=== PATIENT | male | born 2000 | race Caucasian/White ===

== ENCOUNTER 2020-09-01 16:44 | Emergency (ER) | payer BC, SELFPAY ==
[2020-09-01 17:06] VITALS: BP 124/74; PULSE 62; RESP 18; TEMP 36.8; O2SAT 99; BMI 20.3
--- NOTE | 2020-09-01 17:11 | HMH.EDUTC ---
[facility] Disposition Clinical Impression: Exposure to COVID-19 virus Disposition: Home, Self-Care Condition on Discharge: Good Instructions: Preventing the Spread of Coronavirus Discharge Instructions Additional Instructions: Drink plenty of fluids. Take tylenol for pain or fever. Return if you begin to have difficulty breathing. Follow up with your regular doctor. GO TO THE ER FOR ANY WORSENING SYMPTOMS Referrals: Santos Cintron MD [Primary Care Provider] - Forms: Work/School Release Time of Disposition: 17:16 Medical Decision Making - Medical Records Medical records reviewed: No: I reviewed the patient's medical records. - Ihsan Inquiry Pt receiving controlled substance: No Vital Signs: 09/01/20 17:06 09/01/20 17:16 Temperature 98.2 F 98.2 F Temperature Source Oral Oral Pulse Rate 65 Pulse Rate [Left] 62 Respiratory Rate 18 19 Blood Pressure 119/69 Blood Pressure [Right Arm] 124/74 Blood Pressure Mean [Right Arm] 90 Blood Pressure Source [Right Arm] Automatic Cuff Blood Pressure Position Sitting Blood Pressure Position [Right Arm] Sitting 02 Sat by Pulse Oximetry 99 Oxygen Delivery Method Room Air Room Air [facility] HPI - General Stated complaint: covid test Time Seen by Provider: 09/01/20 17:11 Mode of Arrival: Ambulatory Source of Information: Patient Limitations: No Limitations Description of Symptoms (Recalled from Triage Doc. by RN): exposed to covid positive friend. pt is aysmptomatic. HEENT Symptoms (Recalled from RN notes): No Resp Symptoms (Recalled from RN notes): No Skin Symptoms (Recalled from RN notes): No MS Symptoms (Recalled from RN notes): No Functional Status (Recalled from RN notes): na - History of Present Illness Provider Complaint: He states that he was exposed to covid-19 3 days ago. He denies any symptoms so far. His work ([employer]) wanted him to get tested. - Related Data Home Medications Medication Instructions Recorded Confirmed No Known Home Medications 09/24/17 09/24/17 Allergies Allergy/AdvReac Type Severity Reaction Status Date / Time NO KNOWN ALLERGIES - NKA Allergy Mild Uncoded 09/24/17 10:58 - Worker's Comp Is this a Worker's Comp case?: No [facility] History - Hepatitis A Screen Drug use history?: No High risk sexual behaviors?: No History of sexually transmitted infection?: No Currently employed?: No Childcare worker?: No Do you have indoor plumbing?: Yes Do you have electricity?: Yes Attestation statement:: This patient has been screened for Hepatitis A risk factors. I have reviewed the patient's past medical history: Yes Other Surgeries: Yes: No Previous Surgery - Social History Smoking Status: Never smoker Alcohol Intake: never Family Hx:: No significant family history ROS Obtained: Yes All systems reviewed & no additional complaints - Constitutional Constitutional: Reports system reviewed and no additional complaints, except as docu - Eyes Eyes: Reports system reviewed and no additional complaints, except as docu - ENT Ears, Nose, Mouth, and Throat: Reports system reviewed and no additional complaints, except as docu - Cardiovascular Cardiovascular: Reports system reviewed and no additional complaints, except as docu - Respiratory Respiratory: Reports system reviewed and no additional complaints, except as docu - Gastrointestinal Gastrointestingal: Reports: system reviewed and no additional complaints, except as docu Physical Exam - General General appearance: alert, in no apparent distress - Head Head exam: atraumatic, normocephalic, normal inspection - Eye Eye exam: Present: normal appearance, PERRL, EOMI - ENT ENT exam: Present: normal exam, normal oropharynx, mucous membranes moist, TM's normal bilaterally, normal external ear exam - Neck Neck exam: Present: normal inspection, full ROM, trachea midline. Absent: meningismus, lymphadenopathy - Chest C
[2020-09-01 17:16] VITALS: BP 119/69; PULSE 65; RESP 19; TEMP 36.8
--- NOTE | 2020-09-02 09:24 | PC.NURSE ---
attempted to contact patient re: covid results
--- NOTE | 2020-09-02 09:28 | PC.NURSE ---
PATIENT RETURNED CALL, NOTIFIED OF POSITIVE COVID RESULTS
== END 2020-09-01 17:28 | disposition home or self-care (01) ==
PROVIDERS: Emergency Provider Nurse Practitioner Family; PCP Family Medicine
DX: Z20.822 Contact with and (suspected) exposure to COVID-19 (principal)
CPT/HCPCS: 99202; G0463; U0003

== ENCOUNTER 2020-09-15 18:45 | Emergency (ER) | payer BC, SELFPAY ==
[2020-09-15 18:45] VITALS: BP 138/82; PULSE 68; RESP 18; TEMP 36.9; O2SAT 99; BMI 20.3
[2020-09-15 19:16] VITALS: BP 138/82; PULSE 68; RESP 18; TEMP 36.9; O2SAT 99
--- NOTE | 2020-09-15 19:17 | HMH.EDUTC ---
[facility] [place] Disposition Clinical Impression: COVID-19 Disposition: Home, Self-Care Condition on Discharge: Good Instructions: Preventing the Spread of Coronavirus Discharge Instructions Additional Instructions: Drink plenty of fluids. Take tylenol or ibuprofen for pain or fever. Take the medications as directed. Follow up with your regular doctor. GO TO THE ER FOR ANY WORSENING SYMPTOMS Referrals: Santos Cintron MD [Primary Care Provider] - Time of Disposition: 19:24 Medical Decision Making - Medical Records Medical records reviewed: No: I reviewed the patient's medical records. - Ihsan Inquiry Pt receiving controlled substance: No Vital Signs: 09/15/20 18:45 09/15/20 19:16 Temperature 98.4 F 98.4 F Temperature Source Oral Pulse Rate 68 Pulse Rate [Right Brachial] 68 Respiratory Rate 18 18 Blood Pressure 138/82 Blood Pressure [Right Arm] 138/82 Blood Pressure Mean [Right Arm] 100 Blood Pressure Source [Right Arm] Automatic Cuff Blood Pressure Position [Right Arm] Sitting 02 Sat by Pulse Oximetry 99 Oxygen Delivery Method Room Air [facility] [place] HPI - General Stated complaint: covid test Time Seen by Provider: 09/15/20 19:17 Mode of Arrival: Ambulatory Source of Information: Patient Limitations: No Limitations Description of Symptoms (Recalled from Triage Doc. by RN): PATIENT NEEDING A NEGATIVE TEST TO RETURN TO WORK HEENT Symptoms (Recalled from RN notes): No Resp Symptoms (Recalled from RN notes): No Skin Symptoms (Recalled from RN notes): No MS Symptoms (Recalled from RN notes): No Functional Status (Recalled from RN notes): WNL - History of Present Illness Provider Complaint: He has had covid-19 and now he needs a negative test to return to work. He denies any symptoms for the past several days. - Related Data Home Medications Medication Instructions Recorded Confirmed No Known Home Medications 09/24/17 09/24/17 Allergies Allergy/AdvReac Type Severity Reaction Status Date / Time No Known Allergies Allergy Verified 09/15/20 19:07 - Worker's Comp Is this a Worker's Comp case?: No [facility] History - Hepatitis A Screen Drug use history?: No High risk sexual behaviors?: No History of sexually transmitted infection?: No Currently employed?: No Childcare worker?: No Do you have indoor plumbing?: Yes Do you have electricity?: Yes Attestation statement:: This patient has been screened for Hepatitis A risk factors. I have reviewed the patient's past medical history: Yes Other Surgeries: Yes: No Previous Surgery - Social History Smoking Status: Never smoker Alcohol Intake: never Occupational Status: employed Family Hx:: No significant family history ROS Obtained: Yes All systems reviewed & no additional complaints - Constitutional Constitutional: Reports system reviewed and no additional complaints, except as docu - Eyes Eyes: Reports system reviewed and no additional complaints, except as docu - ENT Ears, Nose, Mouth, and Throat: Reports system reviewed and no additional complaints, except as docu - Cardiovascular Cardiovascular: Reports system reviewed and no additional complaints, except as docu - Respiratory Respiratory: Reports system reviewed and no additional complaints, except as docu - Gastrointestinal Gastrointestingal: Reports: system reviewed and no additional complaints, except as docu Physical Exam - General General appearance: alert, in no apparent distress - Head Head exam: atraumatic, normocephalic, normal inspection - Eye Eye exam: Present: normal appearance, PERRL, EOMI - ENT ENT exam: Present: normal exam, normal oropharynx, mucous membranes moist, TM's normal bilaterally, normal external ear exam - Neck Neck exam: Present: normal inspection, full ROM, trachea midline. Absent: meningismus, lymphadenopathy - Chest Chest inspection: Present: normal inspection, symmetric chest wall rise. Absent: tendernes
== END 2020-09-15 19:26 | disposition home or self-care (01) ==
PROVIDERS: Emergency Provider Nurse Practitioner Family; PCP Family Medicine
DX: Z86.16 Personal history of COVID-19 (principal)
CPT/HCPCS: 99202; G0463; U0003

== ENCOUNTER → 2021-05-31 16:47 | Outpatient (CLI) | payer BC, SELFPAY | PROVIDERS: PCP Family Medicine; Visit Provider Nurse Practitioner | DX: Z20.822 Contact with and (suspected) exposure to COVID-19 (principal) | CPT/HCPCS: C9803; U0003; U0005 ==

== ENCOUNTER → 2021-10-28 12:25 | Outpatient (CLI) | payer BC, SELFPAY ==
[2021-10-28 13:01] LABS: Strep Scrn Group A (Rapid) Negative (Negative)
== END ==
PROVIDERS: PCP Family Medicine; Visit Provider Family Medicine
DX: Z20.822 Contact with and (suspected) exposure to COVID-19 (principal)
CPT/HCPCS: 87275; 87276; 87430; C9803; U0003; U0005

== ENCOUNTER → 2021-10-31 18:17 | Outpatient (CLI) | payer BC, SELFPAY ==
[2021-10-31 18:44] LABS: Monoscreen (Rapid) Negative (Negative)
== END ==
PROVIDERS: PCP Family Medicine; Visit Provider Family Medicine
DX: Z11.59 Encounter for screening for other viral diseases (principal)
CPT/HCPCS: 36415; 86318

== ENCOUNTER 2022-05-07 13:43 | Emergency (ER) | payer BC, SELFPAY ==
[2022-05-07 14:06] VITALS: BP 135/66; PULSE 83; RESP 17; TEMP 36.6; O2SAT 99; BMI 20.9
[2022-05-07 14:09] LABS: UTC Strep Screen (Rapid) Negative (Negative)
--- NOTE | 2022-05-07 14:20 | EXP.UTC ---
Discharge Plan Disposition Patient Disposition: Home, Self-Care Condition: Good Prescriptions Prescriptions: New amoxicillin [amoxicillin] 875 mg tablet 875 mg PO Q12H Qty: 20 0RF [id number]-wkwhrldju-[id number] [Bromfed DM] 2-30-10 mg/5 mL Syrup 5 ml PO Q6H PRN (Reason: Cough) Qty: 240 0RF prednisone 10 mg tablet 10 mg PO BID 3 Days Qty: 6 0RF Referrals Follow up/Referrals: Santos Cintron MD [Primary Care Provider] - See instructions Activity Restrictions/Add. Instructions Additional Instructions/Restrictions: Drink plenty of fluids. Take tylenol or ibuprofen for pain or fever. Take the medications as directed. Follow up with your regular doctor. GO TO THE ER FOR ANY WORSENING SYMPTOMS Throw your tooth brush away and get a new one. Clinical Impressions Clinical Impression: Pharyngitis Stand Alone Forms Stand Alone Forms: Work/School Release Instructions Patient Instructions: Strep Throat, DI for Strep Throat Discharge ED Provider: Gael Melton [facility] General Stated complaint: sore throat, weakness, chills Mode of Arrival: Ambulatory Source of Information: Patient Limitations: No Limitations Time Seen by Provider: 05/07/22 14:19 Description of Symptoms (Recalled from Triage Doc. by RN): pt comes in with c/o sore throat, chills, fatigue. symptoms began last night, but have worsened today. HEENT Symptoms (Recalled from RN notes): No Resp Symptoms (Recalled from RN notes): No Skin Symptoms (Recalled from RN notes): No MS Symptoms (Recalled from RN notes): No Functional Status (Recalled from RN notes): n/a History of Present Illness Provider Complaint: He states that for the past 2 days he has had a worsening sore throat. He has been exposed to strep throat. Related Data Previous Rx's Medication Instructions Recorded amoxicillin 875 mg tablet 875 mg PO Q12H #20 tabs 05/07/22 zzkpqujymarigpz-luvxetevtkxsuwy-YX 5 ml PO Q6H PRN Cough #240 mL 05/07/22 2 mg-30 mg-10 mg/5 mL oral syrup (Bromfed DM) prednisone 10 mg tablet 10 mg PO BID 3 days #6 tabs 05/07/22 Allergies Allergy/AdvReac Type Severity Reaction Status Date / Time No Known Allergies Allergy Verified 09/15/20 19:07 Worker's Comp Is this a Worker's Comp case?: No PFSH PFSH Social History Smoking Status: Never smoker alcohol intake: never current occupational status: employed Travel in the last 8 weeks: None ROS Obtained: Yes All systems reviewed & no additional complaints except as documented Constitutional Constitutional: Reports chills and Reports fever(s) Eyes Eyes: Denies eye discharge ENT Ears, Nose, Mouth, and Throat: Reports as per HPI Cardiovascular Cardiovascular: Denies chest pain Respiratory Respiratory: Denies chest congestion and Reports cough Gastrointestinal Gastrointestingal: Reports nausea; Denies abdominal pain, constipation, cramping, diarrhea or vomiting Musculoskeletal Musculoskeletal: Denies arthralgias Integumentary/Breasts Skin/Breast: Denies rash Neurologic Neurologic: Denies paresthesias Physical Exam General General appearance: alert and in no apparent distress Head Head exam: atraumatic, normocephalic and normal inspection Eye Eye exam: Present normal appearance, PERRL and EOMI ENT ENT exam: Present mucous membranes moist and normal external ear exam Expanded ENT Exam TM/Canal exam: Bilateral TM: erythema and bulging Nose exam: Absent sinus tenderness Mouth exam: Present normal external inspection; Absent drooling Teeth exam: Present normal inspection Throat exam: Present tonsillar erythema, tonsillomegaly and tonsillar exudate Neck Neck exam: Present normal inspection, full ROM and trachea midline; Absent tenderness, meningismus or lymphadenopathy Chest Chest inspection: Present normal inspection and symmetric chest wall rise; Absent tenderness Respiratory Respiratory exam: Present normal
[2022-05-07 14:43] VITALS: BP 135/66; PULSE 83; RESP 17; TEMP 36.6
== END 2022-05-07 14:51 | disposition home or self-care (01) ==
PROVIDERS: Emergency Provider Nurse Practitioner Family; PCP Family Medicine
DX: U07.1 COVID-19 (principal)
CPT/HCPCS: 87880; 99212; C9803; G0463; U0003; U0005

== ENCOUNTER 2022-05-22 08:14 | Emergency (ER) | payer BC, SELFPAY ==
[2022-05-22 08:14] VITALS: BP 115/80; PULSE 89; RESP 19; TEMP 36.5; O2SAT 98; BMI 24.8
--- NOTE | 2022-05-22 08:43 | EXP.UTC ---
Discharge Plan Disposition Patient Disposition: Home, Self-Care Condition: Good Prescriptions Prescriptions: New polymyxin B sulf-trimethoprim [Polytrim] 10,000 unit- 1 mg/mL drops 2 drp ophthalmic (eye) Q6H 7 Days Qty: 10 0RF Rx Instructions: apply in left eye while awake; do not exceed 6 doses in 24 hours No Action amoxicillin [amoxicillin] 875 mg tablet 875 mg PO Q12H Qty: 20 0RF fdhdwjrcgbahwch-kmwsrkpep-OA [Bromfed DM] 2-30-10 mg/5 mL Syrup 5 ml PO Q6H PRN (Reason: Cough) Qty: 240 0RF prednisone 10 mg tablet 10 mg PO BID 3 Days Qty: 6 0RF Referrals Follow up/Referrals: Santos Cintron MD [Primary Care Provider] - See instructions Activity Restrictions/Add. Instructions Additional Instructions/Restrictions: Wash hands well before and after applying eye drops Warm water and baby shampoo may help to clear matting from eyes Return if needed Follow up with your Eye Doctor if no improvement or any worsening of symptoms Straight to ER if any life threatening symptoms Clinical Impressions Clinical Impression: Conjunctivitis Qualifiers: Conjunctivitis type: unspecified Laterality: left Qualified Code(s): H10.9 - Unspecified conjunctivitis Stand Alone Forms Stand Alone Forms: Work/School Release Instructions Patient Instructions: Conjunctivitis, DI for Conjunctivitis Discharge ED Provider: Sun Saha [facility] General Stated complaint: possible pink eye Mode of Arrival: Ambulatory Source of Information: Patient and Parent(s) Limitations: No Limitations Time Seen by Provider: 05/22/22 08:43 Description of Symptoms (Recalled from Triage Doc. by RN): pink eye right since this morning HEENT Symptoms (Recalled from RN notes): Yes Resp Symptoms (Recalled from RN notes): No Skin Symptoms (Recalled from RN notes): No MS Symptoms (Recalled from RN notes): No Functional Status (Recalled from RN notes): n/a History of Present Illness Provider Complaint: Patient states that he woke up this morning with his left eye matted together States that since then he has had drainage and the eye felt irritated and itchy Denies injury Denies FB Related Data Previous Rx's Medication Instructions Recorded amoxicillin 875 mg tablet 875 mg PO Q12H #20 tabs 05/07/22 yykrchvjtwvxifq-vvhfnxrefuqdgnh-SW 5 ml PO Q6H PRN Cough #240 mL 05/07/22 2 mg-30 mg-10 mg/5 mL oral syrup (Bromfed DM) prednisone 10 mg tablet 10 mg PO BID 3 days #6 tabs 05/07/22 polymyxin B sulfate 10,000 2 drp ophthalmic (eye) Q6H 7 days 05/22/22 unit-trimethoprim 1 mg/mL eye #10 mL drops (Polytrim) Allergies Allergy/AdvReac Type Severity Reaction Status Date / Time No Known Allergies Allergy Verified 09/15/20 19:07 Worker's Comp Is this a Worker's Comp case?: No PFSH PFSH Social History Smoking Status: Never smoker alcohol intake: never current occupational status: employed Travel in the last 8 weeks: None ROS Obtained: Yes All systems reviewed & no additional complaints except as documented and Yes Systems reviewed as appropriate & no additional complaints except as documented Constitutional Constitutional: Reports system reviewed and no additional complaints, except as documented and Reports as per HPI Eyes Eyes: Reports system reviewed and no additional complaints, except as documented, Reports as per HPI, Reports eye discharge, Reports irritation, Reports itchy eyes and Reports other (redness and matting) ENT Ears, Nose, Mouth, and Throat: Reports system reviewed and no additional complaints, except as documented and Reports as per HPI Cardiovascular Cardiovascular: Reports system reviewed and no additional complaints, except as documented and Reports as per HPI Allergic/Immunologic Allergic/Immunologic: Reports itchy eyes Physical Exam General General appearance: alert and in no apparent distress Eye Eye exam: Present conjunctival redness,
[2022-05-22 08:54] VITALS: BP 115/80; PULSE 89; RESP 18; TEMP 36.5; O2SAT 98
== END 2022-05-22 08:55 | disposition home or self-care (01) ==
PROVIDERS: Emergency Provider Nurse Practitioner; PCP Family Medicine
DX: H10.9 Unspecified conjunctivitis (principal); R05.9 Cough, unspecified
CPT/HCPCS: 99213; G0463

== ENCOUNTER → 2022-11-13 15:52 | Outpatient (CLI) | payer BC, SELFPAY ==
--- NOTE | 2022-11-13 15:55 | MR_ITS ---
PROCEDURE INFORMATION: Exam: MR Right Lower Extremity Joint Without Contrast, Knee Exam date and time: 11/13/2022 4:06 PM Age: 22 years old Clinical indication: Pain; Knee; Right; Additional info: Pain in right knee. Pain inferior to patella. No injury or trauma. Knee instability. TECHNIQUE: Imaging protocol: Magnetic resonance imaging of the right lower extremity joint without contrast. Exam focused on the knee. COMPARISON: No relevant prior studies available. FINDINGS: Bones/joints: Marrow edema/contusion is identified involving the patella, most significant inferiorly. Minimal patellofemoral joint effusion. Bursae: Minimal fluid within the deep infrapatellar bursa. A neck of a Caceres cyst is visualized. Medial meniscus: Minimal increased signal within the medial meniscus. There is a subtle tear of the posterior horn of the medial meniscus extending to the inferior articulating surface, as visualized on series 9, image 47. Lateral meniscus: A small amount of fluid is identified adjacent to the posterior horn of the lateral meniscus. This measures 1-2 mm inferior to the posterior horn. No visualized tear of the lateral meniscus contacting an articulating surface. Mild abnormal morphology of the posterior horn of the lateral meniscus. Anterior cruciate ligament: Heterogeneous signal intensity of the ACL, consistent with mucoid degeneration. No full-thickness tear visualized. Posterior cruciate ligament: No visualized tear. Medial capsule and supporting structures: Unremarkable. No tear. Lateral capsule and supporting structures: Unremarkable. No tear. Extensor mechanism of knee: Mild tendinosis of the distal quadriceps tendon and patellar tendon. Soft tissues: Minimal edema/fluid within Hoffa's fat. Mild soft tissue swelling posteriorly. IMPRESSION: 1. Marrow edema/contusion is identified involving the patella, most significant inferiorly. 2. There is a subtle tear of the posterior horn of the medial meniscus. 3. Minimal patellofemoral joint effusion. 4. Heterogeneous signal intensity of the ACL, consistent with mucoid degeneration. No full-thickness tear visualized. 5. Additional findings described above.
== END ==
PROVIDERS: PCP Family Medicine; Visit Provider Family Medicine
DX: M25.561 Pain in right knee (principal)
CPT/HCPCS: 73721

== ENCOUNTER 2024-07-20 15:34 | Emergency (ER) | payer BC, SELFPAY ==
[2024-07-20 17:30] VITALS: BP 145/85; PULSE 78; RESP 19; TEMP 37.1; O2SAT 98; BMI 25.1
--- NOTE | 2024-07-20 17:41 | EXP.UTC ---
Discharge Plan Disposition Patient Disposition: Home, Self-Care Condition: Good Referrals Follow up/Referrals: Srinivasa Irwin MD [Primary Care Provider] - See instructions Activity Restrictions/Add. Instructions Additional Instructions/Restrictions: *Monitor Temp, Over the counter Motrin or Tylenol as directed/as needed Tylenol every 4 hours and Motrin every 6 hours (as long as your family doctor has told you that you can take it) for fever or pain. and straight to ER if unable to lower temp less than 101.0 after medication given *Warm salt water gargles may help to soothe the throat *Throat Lozenges? *Warm fluids like tea with honey may help to soothe the throat? *Sleep elevated *Humidifier/Vaporizer *Flonase 2 sprays in each nostril daily but be aware that it may take 2-3 days before you notice improvement *Bromfed may cause drowsiness. Know how it effects you (your child) before driving, caring for small child, or sending your child to school. Not other antihistamines/allergy medications while taking bromfed Your throat swab was sent for culture. Those results are typically sent to your primary care. Be sure to follow up in 2-3 days with your family doctor/primary care physician if no improvement so they can review those result and treat if necessary. If you don?t have a primary care doctor, I recommend you get one but in the mean time, you will have to return to a walk in clinic Follow up IMMEDIATELY for new or worsening symptoms or no Noticeable improvement over the next 48-72 hours. 911 for difficulty breathing or swallowing Clinical Impressions Clinical Impression: Viral syndrome Instructions Patient Instructions: Sore Throat, DI for Nasal Congestion Print Language Print Language: Bermudian Discharge ED Provider: Sun Saha [facility] HPI General Stated complaint: h/a, sore throat, congestion Time Seen by Provider: 07/20/24 17:41 History of Present Illness Provider Complaint: Patient states that he has had sore throat since Sunday States that today his throat was hurting worse States that he has been around brother that has had COVID and flu 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 Social History Smoking Status: Never smoker alcohol intake: never current occupational status: employed Travel in the last 8 weeks: None Have you lived/traveled outside [place] in past 30 days?: No Contact w/someone who lives/traveled outside US past 30 days?: No Exposure to someone with infectious disease in past 14 days?: No Do you have a fever (greater than 100.4 F or 38 C)?: No Have you tested positive for COVID-19: No Exposed to someone with COVID-19 in past 14 days?: Yes Do you have a sore throat?: Yes Do you have a cough?: No Do you have any weakness?: No Do you have any diarrhea?: No Are you experiencing any unusual bleeding?: No Do you have any muscle aches/pain?: No Do you have any abdominal pain?: No Are you experiencing loss of taste or smell?: No ROS Obtained: Yes All systems reviewed & no additional complaints except as documented and Yes Systems reviewed as appropriate & no additional complaints except as documented Constitutional Constitutional: Reports system reviewed and no additional complaints, except as documented, Reports as per HPI, Reports body ache, Reports chills and Reports headache(s) ENT Ears, Nose, Mouth, and Throat: Reports system reviewed and no additional complaints, except as documented, Reports as per HPI, Reports headache(s), Reports nasal congestion, Reports nasal discharge and Reports sore throat Cardiovascular Cardiovascular: Reports system reviewed and no additional complaints, except as documented and Reports as per HPI Respiratory Respiratory: Reports system reviewed and no additional complaints, except as documented and Reports as per HPI Neurologic Neurologic: Reports headache(s) Physical Exam General General appearance: alert and in no apparent distress ENT ENT exam: Present mucous membranes moist Expanded ENT Exam Nose exam: Absent sinus tenderness Throat exam: Present tonsillar erythema Respiratory Respiratory exam: Present normal lung sounds bilaterally; Absent respiratory distress or wheezes Cardiovascular Cardiovascular exam: Present regular rate, normal rhythm and normal heart sounds Abdominal Exam Abdominal exam: Present soft and normal bowel sounds; Absent distention or tenderness Neurological Exam Neurological exam: Present alert, oriented X3 and normal gait Medical Decision Making Medical Records Screening: Per USPSTF and CDC recommendations, given the prevalence of disease in our region, it is our hospital?s policy to screen for HIV and viral Hepatitis for all patients aged 18 and over and those with ongoing risk factors. Ihsan Inquiry Pt receiving controlled substance: No Ihsan was queried for this patient: No Lab Data Lab results reviewed: Yes I reviewed the patient's lab results.
[2024-07-20 17:57] LABS: UTC Influenza A Antigen Negative (Negative); UTC Strep Screen (Rapid) Negative (Negative)
[2024-07-20 17:58] LABS: UTC Influenza B Antigen Negative (Negative)
[2024-07-20 18:00] VITALS: BP 145/85; PULSE 78; RESP 19; TEMP 37.1; O2SAT 98
[2024-07-20 18:14] LABS: Coronavirus 19, PCR Not Detected (NotDetected); Influenza A, PCR Not Detected (NotDetected); Influenza B, PCR Not Detected (NotDetected)
== END 2024-07-20 18:04 | disposition home or self-care (01) ==
PROVIDERS: Emergency Provider Nurse Practitioner; PCP Family Medicine
DX: B34.9 Viral infection, unspecified (principal)
CPT/HCPCS: 87636; 87804; 87880; 99213; G0381

== ENCOUNTER 2024-12-04 15:52 | Outpatient (CLI) | payer BC, SELFPAY ==
--- OUTSIDE RECORDS SUMMARY | 2024-12-04 15:54 | XMS_ITS | Continuity of Care Document ---
Author Name [facility] Organization [facility] Care Team Providers Care Tumor Registrar Name Role Phone [facility] Unavailable Unavailable Problems Combined list of problems from Department of Defense and Veterans Affairs facilities. It does not include entries that were removed or entered in error. 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 Medication Details Route Status Patient Instructions Prescription Expires Prescription Number Last Dispense Date Ordering Provider Order Date Order Qty Source atropine-pr alidoxime 2.1 mg-600 mg/2.7 mL syringe See Instruct ions, # 8.1 mL, 0 total refill(s ), Hard Stop Complet ed 05/01/2024 3 2023 8.1 Ambulat ory Pharmac y Cipro 500 mg tablet See Instruct ions, Oral, # 6 EA, 0 total refill(s ), Hard Stop Oral (given by mouth) Complet ed 05/01/2024 3 2023 6.0 Ambulat ory Pharmac y diazePAM 10 mg/2 mL autoinjecto r (2mL) See Instruct ions, # 2 mL, 0 total refill(s ), Hard Stop Complet ed 10/29/2023 3 2023 2.0 Ambulat ory Pharmac y iOSAT 130 mg tablet See Instruct ions, Oral, # 14 EA, 0 total refill(s ), Hard Stop Oral (given by mouth) Complet ed 05/01/2024 3 2023 14.0 Ambulat ory Pharmac y pyridostigm ine bromide 30 mg tablet See Instruct ions, Oral, # 42 EA, 0 total refill(s ), Hard Stop Oral (given by mouth) Complet ed 05/01/2024 3 2023 42.0 Ambulat ory Pharmac y Reactive Skin Decontamina tion Lotion Packet See Instruct ions, # 3 EA, 0 total refill(s ), Hard Stop Complet ed 05/01/2024 3 2023 3.0 Ambulat ory Pharmac y Allergies, Adverse Reactions, Alerts Combined list of allergies from Department of Defense and Veterans Affairs facilities. It does not include entries that were removed or entered in error. Substance Category Reaction Severity Reaction type Status Date Reported Comments Source No Known Allergies Drug allergy (disorder) active 09/22/2022 [place] [address] Immunizations Combined list of available immunizations from the Department of Defense and Veterans Affairs facilities. Immunization Series Date Given Administered By Site Reaction Lot Number CVX Code Drug Rn Teacher Status Comments Source hepatitis B vaccine, adult dosage 3 2020 [id number] [employer] ([facility]) complet ed hepatitis B vaccine, adult dosage DoD influenza, injectable, quadrivalent, contains preservative 1 2020 [id number] [employer] ([facility]) complet ed influenza , injectabl e, quadrival ent, contains preservat tyson DoD SARS-COV-2 (COVID-19) vaccine, mRNA, spike protein, LNP, preservative free, 30 mcg/0.3mL dose 2 2020 [id number] [employer] (PFR) complet ed SARS-COV- 2 (COVID-19 ) vaccine, mRNA, spike protein, LNP, preservat tyson free, 30 mcg/0.3mL dose DoD COVID Vaccine Pfizer 2020 [id number] PFIZER complet ed COVID Vaccine Pfizer 05/05/21 Given Ambulat ory Pharmac y SARS-COV-2 (COVID-19) vaccine, mRNA, spike protein, LNP, preservative free, 30 mcg/0.3mL dose 1 2020 [id number] [employer] (PFR) complet ed SARS-COV- 2 (COVID-19 ) vaccine, mRNA, spike protein, LNP, preservat tyson free, 30 mcg/0.3mL dose DoD hepatitis B vaccine, adult dosage 1 2020 [id number] 43 [employer] (SKB) complet ed hepatitis B vaccine, adult dosage DoD hepatitis B adult vaccine 2020 [id number] 43 GlaxoSmithKli ne complet ed hepatitis B adult vaccine 10/27/20 Given Ambulat ory Pharmac y hepatitis B vaccine, adult dosage 1 2020 [id number] 43 [employer] (SKB) complet ed hepatitis B vaccine, adult dosage DoD tetanus, diphtheria, acellular pertu is 2020 [id number] GlaxoSmithKli ne complet ed tetanus, diphtheri a, acellular pertussis 10/21/20 Given Ambulat ory Pharmac y influenza, injectable, quadrivalent- pf 2020 [id number] 150 Seqirus complet ed influenza , injectabl e, quadrival ent-pf 10/21/20 Given Ambulat ory Pharmac y adenovirus vaccine, live 2020 [id number] 143 Teva Pharmaceutica complet ed adenoviru s vaccine, live 10/21/20 Given Ambulat ory Pharmac y meningococcal A,C,Y,W-135 (MCV4P) 2020 [id number] sanofi pasteur complet ed meningoco ccal A,C,Y,W-1 35 (MCV4P) 10/21/20 Given Ambulat ory Pharmac y poliovirus vaccine, inactivated 2020 [id number] 10 sanofi pasteur complet ed polioviru s vaccine, inactivat ed 10/21/20 Given Ambulat ory Pharmac y poliovirus vaccine, inactivated 1 2020 [id number] 10 Sanofi Pasteur (PMC) complet ed polioviru s vaccine, inactivat ed DoD meningococcal polysaccharid e (groups A, C, Y and W-135) diphtheria toxoid conjugate vaccine (MCV4P) 1 2020 [id number] Sanofi Pasteur (PMC) complet ed meningoco ccal polysacch aride (groups A, C, Y and W-135) diphtheri a toxoid conjugate vaccine (MCV4P) DoD tetanus toxoid, reduced diphtheria toxoid, and acellular pertu is vaccine, adsorbed 1 2020 [id number] 115 SmithKline (SKB) complet ed tetanus toxoid, reduced diphtheri a toxoid, and acellular pertussis vaccine, adsorbed DoD Adenovirus, type 4 and type 7, live, oral 1 2020 [id number] 143 [employer] (BRR) complet ed Adenoviru s, type 4 and type 7, live, oral DoD Influenza, injectable, quadrivalent, preservative free 1 2020 [id number] 150 Seqirus (SEQ) complet ed Influenza , injectabl e, quadrival ent, preservat tyson free DoD measles virus vaccine 0 2020 05 () Not Given measles virus vaccine DoD rubella virus vaccine 0 2020 06 () Not Given rubella virus vaccine DoD mumps virus vaccine 0 2020 07 () Not Given mumps virus vaccine DoD varicella virus vaccine 0 2020 21 () Not Given varicella virus vaccine DoD hepatitis A vaccine, adult dosage 0 2020 52 () Not Given hepatitis A vaccine, adult dosage DoD Results Combined list of recent chemistry, hematology and other laboratory results from Department of Defense and Veterans Affairs, ranging from 15 months to all on record, depending upon the facility. Order Name Results Value Reference Range Date Interpretation Specimen Comments Source Infectiou s Disease HIV-1/O/2 Non-Reac tive 1 (11/07/23 12:56 PM) 11/06 N Interpretiv e Data: INTERPRETAT ION: This method is a screening procedure for the detection of HIV p24 Antigen and Antibodies to HIV-1, including Group O, and/or HIV-2. NON-REACTIV E: HIV-1 antigen and HIV-1 / HIV-2 antibodies were not detected. No laboratory evidence of HIV infection. A negative test result does not exclude the possibility of exposure to or infection with HIV. HIV antibodies and/or p24 antigen may be undetectabl e in some stages of the infection and in some clinical conditions. If acute HIV infection is suspected, consider submitting another specimen to a reference laboratory for HIV-1 RNA. SCREEN REACTIVE - CONFIRMATIO N TO FOLLOW: Possible presence of HIV-1antibo dies, HIV-2 antibodies and/or HIV-1 p24 antigen. Specimen will reflex to the confirmatio n testing that fulfills the Center for Disease Control and Prevention' s HIV diagnostic algorithm. Refer to [facility] Guide for additional information : [email or web address] [email or web address] [email or web address] x Testing performed by [employer] [facility] EPILAB Miscellan eous Sendouts Repository Sample Received (11/07/23 12:56 PM) 11/06 N [id number] Infectiou s Disease HIV-1/O/2 Non-Reac tive 2 (02/15/23 9:48 AM) 02/15 N Interpretiv e Data: INTERPRETAT ION: This method is a screening procedure for the detection of HIV p24 Antigen and Antibodies to HIV-1, including Group O, and/or HIV-2. NON-REACTIV E: HIV-1 antigen and HIV-1 / HIV-2 antibodies were not detected. No laboratory evidence of HIV infection. A negative test result does not exclude the possibility of exposure to or infection with HIV. HIV antibodies and/or p24 antigen may be undetectabl e in some stages of the infection and in some clinical conditions. If acute HIV infection is suspected, consider submitting another specimen to a reference laboratory for HIV-1 RNA. SCREEN REACTIVE - CONFIRMATIO N TO FOLLOW: Possible presence of HIV-1antibo dies, HIV-2 antibodies and/or HIV-1 p24 antigen. Specimen will reflex to the confirmatio n testing that fulfills the Center for Disease Control and Prevention' s HIV diagnostic algorithm. Refer to [facility] Lab Guide for additional information : [email or web address]/kx5/EPIL ab/Pages/la [email or web address] x Testing performed by [employer] [id number] Miscellan eous Sendouts Repository Sample Received (02/15/23 9:48 AM) 02/15 N [id number] Encounters Combined list of: 1) Encounters from Department of Veterans Affairs facilities going backup to the last 18 months, not all VA inpatient encounters are included; 2) Encounters from the Department of Defense facilities going backup to 280 months. Location Location Details Encounter Type Encounter Number Reason For Visit Attending Provider ADM Date DC Date Status Disposition [place] [address](Opt [facility]) OUTPATIENT [id number] GÓMEZ MARSHALL 10/27 Released w/o Limitations [facility] [place] [address](O ptometr y Clinic [facility]) [place] [address]([facility]) OUTPATIENT [id number] Notes Entered by: COLIN MCFADDEN 03 Dec 2020 1501 ------- ------- ------- ------- -- PAUL Paula 12/03 Sick at Home/Quarter s [facility] [place] [address]([facility] d) [place] [address](AFN G [address]) OUTPATIENT [id number] Notes Entered by: DANIEL PRICE 03 Sep 2021 1013 ------- ------- ------- ------- -- Annual Non-Fly ARAM ESTRADA 09/03 Released w/o Limitations [facility] [place] [address](A FNG [address]) [place] [address](AFN G [address]) OUTPATIENT [id number] Notes Entered by: DANIEL PRICE 22 Sep 2022 1315 ------- ------- ------- ------- -- Non-Fly ARAM ESTRADA 09/22 [facility] Limitations [facility] [place] [address]A FNG [address]) Theater Facility OUTPATIENT [id number] Theater Provider 10/10 Released w/o Limitations Theater Fac[facility] [id number] MDG Dental [id number] RYAN GARCIA 05/09 Discharge Disposition: Home or Self Care [id number] MDG Procedures Combined list of: 1) Procedures from Department of Veterans Affairs facilities going back up to [facility] 18 months, not all VA non-surgical procedures are included; 2) All procedures from the Department of Defense facilities. Procedure Procedure Type Code Date Perfomer Comments Sourc e No data available for this section Ambulato ry Pharmacy Screening Test Of Visual Acuity, Quantitative, Bilateral Screening Test Of Visual Acuity, Quantitative, Bilateral [id number] GÓMEZ MARSHALL [facility] Social History Combined list of available smoking, tobacco, and other social history from Department of Defense and Veterans Affairs facilities. Social History Type Response Date Comment Sourc e Sex Representation Male (finding) 05/27/2021 Un known Organization Tobacco Frequent/Daily exposure to secondhand smoke in indoor/confined spaces No. Cigarette use: Never-cigarette user. Other Tobacco use: Never-other tobacco user (not cigarettes). Ambulatory Pharmacy Sexual Orientation Ambula tory Pharmacy Gender identity Ambulator y Pharmacy This section is an empty social history section. [facility] Assessment and Plan Combined list of future care activities from Department of Defense and Veterans Affairs facilities (e.g., assessment and plan notes, appointments, orders, and referrals). Additional future care activities may be listed in the Plan of Care section. 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 2.?History of deployment Indicated by SM on their PHAQ Added to 's Kelly problem list ? ? 3.?Exposure to environmental pollution, occupational Indicated by SM on their PHAQ Added to 's [place] problem list ? ? 12/04/2024 No Facility Access Functional Status Combined list of recent functional and cognitive assessments recorded at Department of Defense and Veterans Affairs (VA).VA Functional [place] Measurement (FIM) Scale: 1 = Total Assistance (Subject = 0% +), 2 = Maximal Assistance (Subject = 25% +), 3 = Moderate Assistance (Subject = 50% +), 4 = Minimal Assistance (Subject = 75% +), 5 = Supervision, 6 = Modified [place] (Device), 7 = Complete [place] (Timely, Safely). Assessment Date/Time Source Assessment Type Assessment Skill Assessment Score Assessment Details No data available for this section
--- NOTE | 2024-12-04 15:55 | MR_ITS ---
PROCEDURE INFORMATION: Exam: MR Right Lower Extremity Joint Without Contrast, Knee Exam date and time: 12/04/2024 4:07 PM Age: 24 years old Clinical indication: Pain; Knee; Right; Additional info: Internal derangementof knee/torn meniscus f/u TECHNIQUE: Imaging protocol: Magnetic resonance imaging of the right lower extremity joint without contrast. Exam focused on the knee. COMPARISON: MR KNEE RT WO CON 11/13/2022 4:06 PM FINDINGS: Bones/joints: There is focal T2 hyperintensity within the midportion of the articular cartilage of the patella with underlying infrapatellar marrow edema. The appearance is compatible chondromalacia. Osseous structures otherwise appear unremarkable. Medial meniscus: Unremarkable. No tear. Lateral meniscus: Unremarkable. No tear. Anterior cruciate ligament: Unremarkable. No tear. Posterior cruciate ligament: Unremarkable. No tear. Medial capsule and supporting structures: Unremarkable. No tear. Lateral capsule and supporting structures: Unremarkable. No tear. Extensor mechanism of knee: Unremarkable. No tear. Soft tissues: Unremarkable. 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
== END 2024-12-04 23:59 | disposition home or self-care (01) ==
LOC: RAD 15:53
PROVIDERS: PCP Family Medicine; Visit Provider Family Medicine
DX: M22.41 Chondromalacia patellae, right knee (principal)
CPT/HCPCS: 73721